=== PATIENT | male | born 1935 | race Caucasian/White ===

== ENCOUNTER 2019-01-27 06:36 | Inpatient (IN) | payer MEDICARE, OTHER ==
[2019-01-27] VITALS (18 sets, daily range): BP systolic 117–171; BP diastolic 64–95
[~2019-01-27] VITALS: Ht 160 cm; Wt 69.7 kg
[~2019-01-27 06:36] MED LIST: TRAMADOL HCL50 MG ORAL
[2019-01-27] MEDS ORDERED: Metoclopramide 10mg/2ml Inj IVP ONE (07:15)
[2019-01-27] MEDS ORDERED: Isovue-300 100ml vial INJ PRN (07:15)
[2019-01-27 07:28] LABS: BASOPHILS % (AUTO) 0.9 % (0.0-2.0); EOSINOPHILS % (AUTO) 0.5 % (0.0-3.0); HEMATOCRIT 40.2 % (42.0-52.0); HEMOGLOBIN 14.5 G/DL (14.2-18.0); LYMPHOCYTES % (AUTO) 11.4 % (20.0-45.0); MEAN CORPUSCULAR VOLUME 91 FL (80-99); MONOCYTES % (AUTO) 8.7 % (1.0-10.0); NEUTROPHILS % (AUTO) 78.5 % (45.0-75.0); PLATELET COUNT 279 K/UL (150-450); RED CELL DISTRIBUTION WIDTH 11.4 % (11.6-14.8); WHITE BLOOD COUNT 11.9 K/UL (4.8-10.8)
[2019-01-27 07:37] LABS: ANION GAP 8 mmol/L (5-15); BLOOD UREA NITROGEN 16 mg/dL (7-18); CALCIUM 9.3 MG/DL (8.5-10.1); CARBON DIOXIDE 28 MMOL/L (21-32); CHLORIDE 100 MMOL/L (98-107); CREATININE 1.3 MG/DL (0.55-1.30); POTASSIUM 3.6 MMOL/L (3.5-5.1); SODIUM 136 MMOL/L (136-145)
[2019-01-27 07:50] LABS: ALANINE AMINOTRANSFERASE 21 U/L (12-78); ALBUMIN 3.8 G/DL (3.4-5.0); ALBUMIN/GLOBULIN RATIO 1.1 (1.0-2.7); ALKALINE PHOSPHATASE 84 U/L (46-116); ASPARTATE AMINO TRANSFERASE 23 U/L (15-37)
--- NOTE | 2019-01-27 08:05 | Emergency Room Report ---
History of Present Illness General Chief Complaint: Constipation Source: Patient, Family Member Present Illness HPI 83-year-old male presents ED for evaluation. Brought in by family for constipation. States he has not had a bowel movement since which is unusual for him. Patient denies any abdominal pain. Denies any nausea or vomiting. States that patient does have a hernia on the right side which "came out the other day". States that he has had this hernia for years and had discussion with doctors to have it corrected but he declined. No other aggravating relieving factors. Denies any other associated symptoms Allergies: Coded Allergies: No Known Allergies (Unverified , 01/27/19) Patient History Past Medical History: none Past Surgical History: none Pertinent Family History: none Social History: Denies: smoking, alcohol use, drug use Immunizations: UTD Reviewed Nursing Documentation: PMH: Agreed; PSxH: Agreed Nursing Documentation-PMH Past Medical History: No Stated History Hx Cardiac Problems: No - 2 hip replacemnts Review of Systems All Other Systems: negative except mentioned in HPI Physical Exam Vital Signs Date Time Temp Pulse Resp B/P (MAP) Pulse Ox O2 Delivery O2 Flow Rate FiO2 01/27/19 06:41 98.1 87 16 129/85 (100) 96 Room Air Sp02 EP Interpretation: reviewed, normal General Appearance: no apparent distress, alert, GCS 15, non-toxic Head: normocephalic Eyes: bilateral eye normal inspection, bilateral eye PERRL ENT: normal ENT inspection Neck: normal inspection Respiratory: chest non-tender, lungs clear, normal breath sounds, speaking full sentences Cardiovascular #1: regular rate, rhythm, no edema Gastrointestinal: distended, hernia - R inguinal nonreducible Rectal: deferred Genitourinary: no CVA tenderness Musculoskeletal: back normal Neurologic: alert, oriented x3, responsive, motor strength/tone normal, sensory intact, speech normal Psychiatric: normal inspection Skin: normal inspection Lymphatic: normal inspection Medical Decision Making Diagnostic Impression: Primary Impression: Inguinal hernia of right side with obstruction ER Course Hospital Course 83 yo M presents with R inguinal hernia, no BM X 4 days Differential diagnoses include: abscess, hernia, SBO Clinical course Patient placed on stretcher. telemetry monitor. After initial history and physical I ordered labs, IV fluids, UA, and CT scan Labs - no leukocytosis, Hb/Hct stable, electrolytes ok, CT abdomen and pelvis -right inguinal hernia containing sigmoid with incarceration discussed findings with patient and family. Case discussed with Dr. Lawler and he agreed to accept the patient to his service for further care and support Dr Herrera will see patient I feel this is a highly complex case requiring extensive working including EKG/ Rhythm strip, Xray/CT/US, Blood/urine lab work, repeat exams while in ED, and administration of strong opiates/narcotics for pain control, admission to hospital or close patient follow up. Diagnosis -hernia of right side with obstruction Patient admitted to floor in serious condition Labs Test 01/27/19 07:17 01/27/19 07:56 01/27/19 09:05 White Blood Count 11.9 K/UL (4.8-10.8) Red Blood Count 4.40 M/UL (4.70-6.10) Hemoglobin 14.5 G/DL (14.2-18.0) Hematocrit 40.2 % (42.0-52.0) Mean Corpuscular Volume 91 FL (80-99) Mean Corpuscular Hemoglobin 33.1 PG (27.0-31.0) Mean Corpuscular Hemoglobin Concent 36.2 G/DL (32.0-36.0) Red Cell Distribution Width 11.4 % (11.6-14.8) Platelet Count 279 K/UL (150-450) Mean Platelet Volume 7.0 FL (6.5-10.1) Neutrophils (%) (Auto) 78.5 % (45.0-75.0) Lymphocytes (%) (Auto) 11.4 % (20.0-45.0) Monocytes (%) (Auto) 8.7 % (1.0-10.0) Eosinophils (%) (Auto) 0.5 % (0.0-3.0) Basophils (%) (Auto) 0.9 % (0.0-2.0) Sodium Level 136 MMOL/L (136-145) Potassium Level 3.6 MMOL/L (3.5-5.1) Chloride Level 100 MMOL/L (98-107) Carbon Dioxide Level 28 MMOL/L (21-32) Anion Gap 8 mmol/L (5-15) Blood Urea Nitrogen 16 mg/dL (7-18) Creatinine 1.3 MG/DL (0.55-1.30) Estimat Glomerular Filtration Rate mL/min (>60) Glucose Level 120 MG/DL (74-106) Calcium Level 9.3 MG/DL (8.5-10.1) Total Bilirubin 1.0 MG/DL (0.2-1.0) Aspartate Amino Transf (AST/SGOT) 23 U/L (15-37) Alanine Aminotransferase (ALT/SGPT) 21 U/L (12-78) Alkaline Phosphatase 84 U/L (46-116) Total Protein 7.4 G/DL (6.4-8.2) Albumin 3.8 G/DL (3.4-5.0) Globulin 3.6 g/dL Albumin/Globulin Ratio 1.1 (1.0-2.7) Lipase 100 U/L (73-393) Urine Color Yellow Urine Appearance Clear Urine pH 6 (4.5-8.0) Urine Specific [place] 1.025 (1.005-1.035) Urine Protein 2+ (NEGATIVE) Urine Glucose (UA) Negative (NEGATIVE) Urine Ketones Negative (NEGATIVE) Urine Blood 2+ (NEGATIVE) Urine Nitrite Negative (NEGATIVE) Urine Bilirubin Negative (NEGATIVE) Urine Urobilinogen Normal MG/DL (0.0-1.0) Urine Leukocyte Esterase Negative (NEGATIVE) Urine RBC 5-10 /HPF (0 - 0) Urine WBC 0-2 /HPF (0 - 0) Urine Squamous Epithelial Cells Occasional /LPF Urine Bacteria Occasional /HPF (NONE) Urine Fine Granular Casts 0-2 /LPF (NONE) Prothrombin Time 10.6 SEC (9.30-11.50) Prothromb Time International Ratio 1.0 (0.9-1.1) Activated Partial Thromboplast Time 26 SEC (23-33) CT/MRI/US Diagnostic Results CT/MRI/US Diagnostic Results : Imaging Test Ordered: CT A/P Impression Right inguinal hernia containing a short segment of sigmoid colon with dilatation of the proximal colon suspicious for obstruction and incarceration of the hernia. No evidence of pneumoperitoneum or other complications. Last Vital Signs Date Time Temp Pulse Resp B/P (MAP) Pulse Ox O2 Delivery O2 Flow Rate FiO2 01/27/19 07:07 98.1 87 16 129/85 96 Room Air Status: improved Disposition: ADMITTED INPATIENT Condition: Serious Referrals: NON PHYSICIAN (PCP) Dejuan Martínez MD Jan 27, 2019 08:05
[2019-01-27 08:18] LABS: APPEARANCE,URINE CLEAR; BILIRUBIN, URINE NEGATIVE (NEGATIVE); GLUCOSE, URINE (UA) NEGATIVE (NEGATIVE); KETONES,URINE NEGATIVE (NEGATIVE); LEUKOCYTE ESTERASE ,URINE NEGATIVE (NEGATIVE); NITRITE,URINE NEGATIVE (NEGATIVE); PH,URINE 6 (4.5-8.0); PROTEIN,URINE 2+ (NEGATIVE); UROBILINOGEN,URINE NORMAL MG/DL (0.0-1.0)
[2019-01-27 08:23] LABS: COLOR,URINE YELLOW
--- NOTE | 2019-01-27 09:24 | Diagnostic Imaging Report ---
Indication: Abdominal pain Technique: Continuous helical transaxial imaging of the abdomen and pelvis was obtained from the lung bases to the pubic symphysis during intravenous contrast administration. Coronal 2-D reformats were also obtained. Study obtained in a Siemens sensation [address] Automatic Exposure Control was utilized. Total Dose length Product (DLP): 730.[address] Dose Index Volume (CTDIvol): 12.67 mGy Comparison: None Findings: There is evidence of an incarcerated right inguinal hernia containing segment of the sigmoid colon. The proximal colon or afferent loop entering the hernia is moderately dilated which is suspicious for obstruction. There is no small bowel dilatation. The hernia itself is notable for inflammatory changes including some fluid in the hernia sac and soft tissue stranding. The hernia is not reducible according to Dr. Martínez on the markers department. Imaging findings are keeping with incarceration. There is no free air. There is no pneumatosis identified. There is a moderate amount of liquid stool within the colon. There is a fairly large left inguinal hernia containing fat. Note is made of one large cyst that extends superiorly measuring 11 to 12 cm. Other small hypodensities too small to characterize bilaterally are probably also cysts. There is no hydronephrosis. There is moderate calcification of aorta. The pancreas and liver, spleen, gallbladder appear unremarkable. There is a hiatal hernia present. Basilar reticular densities and some groundglass opacification noted. There is narrowing of intervertebral discs and accompanying endplate osteophyte formation. Hypertrophied facet joints also demonstrated.. There is a severe compression fracture deformity of the T11 vertebra. The fracture is age indeterminate on this study. Bones are osteopenic. IMPRESSION: Right inguinal hernia containing a short segment of sigmoid colon with dilatation of the proximal colon suspicious for obstruction and incarceration of the hernia. No evidence of pneumoperitoneum or other complications. Multiple incidental findings including large left renal cyst, hiatal hernia, basilar fibrosis, left inguinal hernia containing only fat, age indeterminate severe T11 compression fracture. Critical value communication. Findings were discussed via telephone with Dr. Martínez in the emergency department 9:00 AM 01/27/2019. The CT scanner at [facility] is accredited by the [employer] and the scans are performed using dose optimization techniques as appropriate to a performed exam including Automatic Exposure control.
[2019-01-27] MEDS ORDERED: NeoSporin Gu Irrig 1ml Amp IRRIG ONE (10:43)
[2019-01-27] MEDS ORDERED: Lidocaine 1% 10mg/ml/Epi 0.005mg/ml 30ml vial INJ ONE (10:43)
[2019-01-27] MEDS ORDERED: Bacitracin 50000 Units Vial ONE (10:43)
[2019-01-27] MEDS ORDERED: NAMZARIC 28 MG1 EACH PO (10:57)
[2019-01-27] MEDS ORDERED: CEPHALEXIN250 MG ORAL (10:57)
[2019-01-27] MEDS ORDERED: TENORMIN25 MG ORAL (10:57)
[2019-01-27] MEDS ORDERED: fentaNYL 100 mcg/2 mL IV ONE (11:11)
[2019-01-27] MEDS ORDERED: Propofol 200mg/20ml IV ONE (11:11)
[2019-01-27] MEDS ORDERED: Lidocaine 1% MPF 10mg/ml 5ml ONE (11:11)
--- NOTE | 2019-01-27 11:12 | Pre-Procedure Note/Attestation ---
Pre-Procedure Note/Attestation Complete Prior to Procedure Planned Procedure: right Procedure Narrative: right inguinal hernia repair, possible mesh, possible bowel resection, possible exploratory laparotomy Indications for Procedure Pre-Operative Diagnosis: incarcerated right inguinal hernia Attestation I attest that I discussed the nature of the procedure; its benefits; risks and complications; and alternatives (and the risks and benefits of such alternatives ), prior to the procedure, with the patient (or the patient's legal public service representative). I attest that, if there was a reasonable possibility of needing a blood transfusion, the patient (or the patient's legal public service representative) was given the [facility] standardized written summary, pursuant to the [place] Blood Safety Act ([place] Health and Safety Code # 1645, as amended). I attest that I re-evaluated the patient just prior to the surgery and that there has been no change in the patient's H&P, except as documented below: Ladarius Herrera Jan 27, 2019 11:12
[2019-01-27] MEDS ORDERED: Metoclopramide 10mg/2ml Inj IVP PRN (11:15)
[2019-01-27] MEDS ORDERED: Nitroglycerin Subl 0.4mg tab SL PRN (11:15)
[2019-01-27] MEDS ORDERED: Promethazine HCl 25 MG in NS 55 ML IV PRN (11:15)
[2019-01-27] MEDS ORDERED: Morphine Sulfate 2mg/ml Inj(IV/IM USE ONLY) IVP PRN (11:15)
[2019-01-27] MEDS ORDERED: Promethazine HCl 12.5 MG in NS 55 ML IV PRN (11:15)
[2019-01-27] MEDS ORDERED: cefOXitin Sod 2 GM in D5W 110 ML IV PRN (11:15)
[2019-01-27] MEDS: D5 1/2NS 1,000 ML IV SCH ×2 (11:15→20:51)
[2019-01-27] MEDS ORDERED: LORazepam Inj 2mg/ml 1ml IV PRN (11:15)
--- NOTE | 2019-01-27 11:15 | History and Physical ---
History of Present Illness General Date patient seen: Jan 27, 2019 Reason for Hospitalization: Constipation Present Illness HPI 83-year-old male with hx of dementia, HTN presented to ED for evaluation of constipation. Reportedly he has not had a bowel movement since which is unusual for him. Patient denies any abdominal pain. Denies any nausea or vomiting. He has a hernia on the right side which "came out the other day". States that he has had this hernia for years and had discussion with doctors to have it corrected but he declined. No other aggravating relieving factors. Denies any other associated symptoms. He was diagnosed to have incarcerated hernia and admitted for surgical correction of it. Allergies: Coded Allergies: No Known Allergies (Unverified , 01/27/19) Medication History Scheduled Atenolol (Tenormin), 25 MG ORAL DAILY, (Reported) Cephalexin (Cephalexin), 250 MG ORAL BID, (Reported) Memantine HCl/Donepezil HCl (Namzaric 28 mg-10 mg Capsule), 1 EACH PO DAILY, ( Reported) Scheduled PRN Tramadol Hcl* (Ultram*), 50 MG ORAL Q6H PRN for For Pain Patient History Healthcare decision maker Resuscitation status Advanced Directive on File Past Medical/Surgical History Past Medical/Surgical History: (1) History of hypertension (2) Alzheimer's dementia Review of Systems All Other Systems: negative except mentioned in HPI Physical Exam General Appearance: WD/WN, alert Lines, tubes and drains: peripheral HEENT: normocephalic, anicteric Neck: non-tender, normal inspection Respiratory/Chest: chest wall non-tender, lungs clear Cardiovascular/Chest: normal peripheral pulses, regularly irregular Abdomen: normal bowel sounds, non tender, hernia Genitourinary/Rectal: normal genital exam Extremities: normal range of motion Skin Exam: warm/dry Last 24 Hour Vital Signs Date Time Temp Pulse Resp B/P (MAP) Pulse Ox O2 Delivery O2 Flow Rate FiO2 01/27/19 10:11 98.1 81 18 153/89 98 Room Air 01/27/19 10:11 81 18 153/89 98 Room Air 01/27/19 09:36 77 15 171/88 98 Room Air 01/27/19 07:07 98.1 87 16 129/85 96 Room Air 01/27/19 06:41 98.1 87 16 129/85 (100) 96 Room Air Laboratory Tests Test 01/27/19 07:17 01/27/19 07:56 01/27/19 09:05 White Blood Count 11.9 K/UL (4.8-10.8) H Red Blood Count 4.40 M/UL (4.70-6.10) L Hemoglobin 14.5 G/DL (14.2-18.0) Hematocrit 40.2 % (42.0-52.0) L Mean Corpuscular Volume 91 FL (80-99) Mean Corpuscular Hemoglobin 33.1 PG (27.0-31.0) H Mean Corpuscular Hemoglobin Concent 36.2 G/DL (32.0-36.0) H Red Cell Distribution Width 11.4 % (11.6-14.8) L Platelet Count 279 K/UL (150-450) Mean Platelet Volume 7.0 FL (6.5-10.1) Neutrophils (%) (Auto) 78.5 % (45.0-75.0) H Lymphocytes (%) (Auto) 11.4 % (20.0-45.0) L Monocytes (%) (Auto) 8.7 % (1.0-10.0) Eosinophils (%) (Auto) 0.5 % (0.0-3.0) Basophils (%) (Auto) 0.9 % (0.0-2.0) Sodium Level 136 MMOL/L (136-145) Potassium Level 3.6 MMOL/L (3.5-5.1) Chloride Level 100 MMOL/L (98-107) Carbon Dioxide Level 28 MMOL/L (21-32) Anion Gap 8 mmol/L (5-15) Blood Urea Nitrogen 16 mg/dL (7-18) Creatinine 1.3 MG/DL (0.55-1.30) Estimat Glomerular Filtration Rate mL/min (>60) Glucose Level 120 MG/DL (74-106) H Calcium Level 9.3 MG/DL (8.5-10.1) Total Bilirubin 1.0 MG/DL (0.2-1.0) Aspartate Amino Transf (AST/SGOT) 23 U/L (15-37) Alanine Aminotransferase (ALT/SGPT) 21 U/L (12-78) Alkaline Phosphatase 84 U/L (46-116) Total Protein 7.4 G/DL (6.4-8.2) Albumin 3.8 G/DL (3.4-5.0) Globulin 3.6 g/dL Albumin/Globulin Ratio 1.1 (1.0-2.7) Lipase 100 U/L (73-393) Urine Color Yellow Urine Appearance Clear Urine pH 6 (4.5-8.0) Urine Specific [place] 1.025 (1.005-1.035) Urine Protein 2+ (NEGATIVE) H Urine Glucose (UA) Negative (NEGATIVE) Urine Ketones Negative (NEGATIVE) Urine Blood 2+ (NEGATIVE) H Urine Nitrite Negative (NEGATIVE) Urine Bilirubin Negative (NEGATIVE) Urine Urobilinogen Normal MG/DL (0.0-1.0) Urine Leukocyte Esterase Negative (NEGATIVE) Urine RBC 5-10 /HPF (0 - 0) H Urine WBC 0-2 /HPF (0 - 0) Urine Squamous Epithelial Cells Occasional /LPF Urine Bacteria Occasional /HPF (NONE) Urine Fine Granular Casts 0-2 /LPF (NONE) H Prothrombin Time 10.6 SEC (9.30-11.50) Prothromb Time International Ratio 1.0 (0.9-1.1) Activated Partial Thromboplast Time 26 SEC (23-33) Height (Feet): 5 Height (Inches): 3.00 Weight (Pounds): 165 Medications Current Medications Medications (Trade) Dose Ordered Sig/Demetrio Route PRN Reason Start Time Stop Time Status Last Admin Dose Admin Iopamidol (Isovue-300 100ml) 100 ml NOW PRN INJ Radiology Procedure 01/27/19 07:15 Assessment/Plan Problem List: (1) Incarcerated femoral hernia ICD Codes: K41.30 - Unilateral femoral hernia, with obstruction, without gangrene, not specified as recurrent SNOMED: 675487768 (2) History of hypertension ICD Codes: Z86.79 - Personal history of other diseases of the circulatory system SNOMED: 057124451 (3) Alzheimer's dementia ICD Codes: G30.9 - Alzheimer's disease, unspecified; F02.80 - Dementia in other diseases classified elsewhere without behavioral disturbance SNOMED: 15732264 Assessment/Plan: NPO iv fluids monitor BP surgical evaluation dvt prophylaxis symptomatic treatment. Bashir Lawler MD Jan 27, 2019 11:15
--- NOTE | 2019-01-27 11:16 | Consultation ---
History of Present Illness General Date patient seen: Jan 27, 2019 Reason for Hospitalization: Constipation Present Illness HPI 83M presented to ED with worsening abd pain, nausea, constipation. In ED noted to have incarcerated right inguinal hernia that was not reducible. CT confirmed findings. Surgery called to evaluate. patient seen, chart reviewed, patient examined. family at bedside. has been having discomfort from known hernia for a few days now. usually regular BM but now constipated. no emesis. Allergies: Coded Allergies: No Known Allergies (Unverified , 01/27/19) Medication History Scheduled Atenolol (Tenormin), 25 MG ORAL DAILY, (Reported) Cephalexin (Cephalexin), 250 MG ORAL BID, (Reported) Memantine HCl/Donepezil HCl (Namzaric 28 mg-10 mg Capsule), 1 EACH PO DAILY, ( Reported) Scheduled PRN Tramadol Hcl* (Ultram*), 50 MG ORAL Q6H PRN for For Pain Patient History Healthcare decision maker Resuscitation status Advanced Directive on File Past Medical/Surgical History Past Medical/Surgical History: (1) Incarcerated right inguinal hernia (2) History of hypertension (3) Alzheimer's dementia (4) Incarcerated femoral hernia Review of Systems Review of Symptoms General ROS: no weight loss or fever Psychological ROS: no depression or mood changes, no memory loss Ophthalmic ROS: no visual changes or eye irritation ENT ROS: no nasal congestion, hearing loss, dizziness Allergy and Immunology ROS: no allergic symptoms or urticaria Hematological and Lymphatic ROS: no swollen glands, unusual bleeding or bruising Endocrine ROS: no polyuria, polydipsia, weight changes, temperature intolerance Respiratory ROS: no cough, shortness of breath, or wheezing Cardiovascular ROS: no chest pain or dyspnea on exertion Gastrointestinal ROS: abdominal pain,no bright red blood in stool. Musculoskeletal ROS: no myalgias or arthralgias Neurological ROS: no TIA or stroke symptoms Dermatological ROS: no new or changing skin lesions, rashes or pruritis Physical Exam Physical Exam General appearance: alert, cooperative, no distress, appears stated age Head: Normocephalic, without obvious abnormality, atraumatic Eyes: conjunctivae/corneas clear. PERRL, EOM's intact. Fundi benign Throat: Lips, mucosa, and tongue normal. Teeth and gums normal Neck: supple, symmetrical, trachea midline, no adenopathy, thyroid: not enlarged, symmetric, no tenderness/mass/nodules, no carotid bruit and no JVD Lungs: clear to auscultation bilaterally Heart: regular rate and rhythm, S1, S2 normal, no murmur, click, rub or gallop Abdomen: soft, non-tender. Bowel sounds normal. No masses, no organomegaly, distended; incarcerated tender hard right inguinal hernia Extremities: extremities normal, atraumatic, no cyanosis or edema Pulses: 2+ and symmetric Skin: Skin color, texture, turgor normal. No rashes or lesions Neurologic: Grossly normal Last 24 Hour Vital Signs Date Time Temp Pulse Resp B/P (MAP) Pulse Ox O2 Delivery O2 Flow Rate FiO2 01/27/19 10:11 98.1 81 18 153/89 98 Room Air 01/27/19 10:11 81 18 153/89 98 Room Air 01/27/19 09:36 77 15 171/88 98 Room Air 01/27/19 07:07 98.1 87 16 129/85 96 Room Air 01/27/19 06:41 98.1 87 16 129/85 (100) 96 Room Air Laboratory Tests Test 01/27/19 07:17 01/27/19 07:56 01/27/19 09:05 White Blood Count 11.9 K/UL (4.8-10.8) H Red Blood Count 4.40 M/UL (4.70-6.10) L Hemoglobin 14.5 G/DL (14.2-18.0) Hematocrit 40.2 % (42.0-52.0) L Mean Corpuscular Volume 91 FL (80-99) Mean Corpuscular Hemoglobin 33.1 PG (27.0-31.0) H Mean Corpuscular Hemoglobin Concent 36.2 G/DL (32.0-36.0) H Red Cell Distribution Width 11.4 % (11.6-14.8) L Platelet Count 279 K/UL (150-450) Mean Platelet Volume 7.0 FL (6.5-10.1) Neutrophils (%) (Auto) 78.5 % (45.0-75.0) H Lymphocytes (%) (Auto) 11.4 % (20.0-45.0) L Monocytes (%) (Auto) 8.7 % (1.0-10.0) Eosinophils (%) (Auto) 0.5 % (0.0-3.0) Basophils (%) (Auto) 0.9 % (0.0-2.0) Sodium Level 136 MMOL/L (136-145) Potassium Level 3.6 MMOL/L (3.5-5.1) Chloride Level 100 MMOL/L (98-107) Carbon Dioxide Level 28 MMOL/L (21-32) Anion Gap 8 mmol/L (5-15) Blood Urea Nitrogen 16 mg/dL (7-18) Creatinine 1.3 MG/DL (0.55-1.30) Estimat Glomerular Filtration Rate mL/min (>60) Glucose Level 120 MG/DL (74-106) H Calcium Level 9.3 MG/DL (8.5-10.1) Total Bilirubin 1.0 MG/DL (0.2-1.0) Aspartate Amino Transf (AST/SGOT) 23 U/L (15-37) Alanine Aminotransferase (ALT/SGPT) 21 U/L (12-78) Alkaline Phosphatase 84 U/L (46-116) Total Protein 7.4 G/DL (6.4-8.2) Albumin 3.8 G/DL (3.4-5.0) Globulin 3.6 g/dL Albumin/Globulin Ratio 1.1 (1.0-2.7) Lipase 100 U/L (73-393) Urine Color Yellow Urine Appearance Clear Urine pH 6 (4.5-8.0) Urine Specific [place] 1.025 (1.005-1.035) Urine Protein 2+ (NEGATIVE) H Urine Glucose (UA) Negative (NEGATIVE) Urine Ketones Negative (NEGATIVE) Urine Blood 2+ (NEGATIVE) H Urine Nitrite Negative (NEGATIVE) Urine Bilirubin Negative (NEGATIVE) Urine Urobilinogen Normal MG/DL (0.0-1.0) Urine Leukocyte Esterase Negative (NEGATIVE) Urine RBC 5-10 /HPF (0 - 0) H Urine WBC 0-2 /HPF (0 - 0) Urine Squamous Epithelial Cells Occasional /LPF Urine Bacteria Occasional /HPF (NONE) Urine Fine Granular Casts 0-2 /LPF (NONE) H Prothrombin Time 10.6 SEC (9.30-11.50) Prothromb Time International Ratio 1.0 (0.9-1.1) Activated Partial Thromboplast Time 26 SEC (23-33) Height (Feet): 5 Height (Inches): 3.00 Weight (Pounds): 165 Medications Current Medications Medications (Trade) Dose Ordered Sig/Demetrio Route PRN Reason Start Time Stop Time Status Last Admin Dose Admin Iopamidol (Isovue-300 100ml) 100 ml NOW PRN INJ Radiology Procedure 01/27/19 07:15 Assessment/Plan Problem List: (1) Incarcerated right inguinal hernia Assessment & Plan: 83 M with incarcerated right inguinal hernia. CT Findings: There is evidence of an incarcerated right inguinal hernia containing segment of the sigmoid colon. The proximal colon or afferent loop entering the hernia is moderately dilated which is suspicious for obstruction. There is no small bowel dilatation. The hernia itself is notable for inflammatory changes including some fluid in the hernia sac and soft tissue stranding. The hernia is not reducible according to Dr. Martínez on the markers department. Imaging findings are keeping with incarceration. There is no free air. There is no pneumatosis identified. There is a moderate amount of liquid stool within the colon. There is a fairly large left inguinal hernia containing fat. NPO IV fluids IV Abx to OR for reduction, right inguinal hernia repair, possible mesh, possible bowel resection, possible exploration consent thank you ICD Codes: K40.30 - Unilateral inguinal hernia, with obstruction, without gangrene, not specified as recurrent SNOMED: [id number] Ladarius Herrera Jan 27, 2019 11:16
[2019-01-27] MEDS ORDERED: Zemuron 50mg/5ml Inj IV ONE (11:24)
[2019-01-27] MEDS ORDERED: Succinylcholine 20mg/ml 10ml vial ONE (11:24)
--- NOTE | 2019-01-27 11:39 | Anethesia Preoperative Eval ---
Anesthesia Pre-op PMH/ROS General Date of Evaluation: Jan 27, 2019 Time of Evaluation: 11:35 Anesthesiologist: Rosa ASA Score: ASA 2 Mallampati Score Class I : Soft palate, uvula, fauces, pillars visible Class II: Soft palate, uvula, fauces visible Class III: Soft palate, base of uvula visible Class IV: Only hard plate visible Mallampati Classification: Class II Surgeon: Wilver Diagnosis: Incarcerated injuinal hernia Surgical Procedure: Hernia repair Anesthesia History: none Social History: smoking - h/o Family History: no anesthesia problems Allergies: Coded Allergies: No Known Allergies (Unverified , 01/27/19) Medications: see eMAR Patient NPO?: Yes Past Medical History Cardiovascular: Reports: HTN; Denies: CAD, NE, valve dz, arrhythmia, other Pulmonary: Denies: asthma, COPD, PHAN, other Gastrointestinal/Genitourinary: Reports: GERD, other - constipation; Denies: CRI, ESRD Neurologic/Psychiatric: Reports: dementia - mild; Denies: CVA, depression/anxiety, TIA, other Endocrine: Reports: hypothyroidism; Denies: DM, steroids, other HEENT: Reports: cataract (L), cataract (R); Denies: glaucoma, AUGUSTINE (L), AUGUSTINE (R), other Hematology/Immune: Denies: anemia, DVT, bleeding disorder, other Musculoskeletal/Integumentary: Reports: OA; Denies: RA, DJD, DDD, edema, other Other: other - overweight PMH Narrative: as above PSxH Narrative: see H&P Anesthesia Pre-op Phys. Exam Physician Exam Last Vital Signs Date Time Temp Pulse Resp B/P (MAP) Pulse Ox O2 Delivery O2 Flow Rate FiO2 01/27/19 10:11 98.1 81 18 153/89 98 Room Air Constitutional: NAD Neurologic: CN 2-12 intact Cardiovascular: RRR, no M/R/G Respiratory: CTA Gastrointestinal: S/NT/ND Airway Exam Mallampati Score: Class II MO: limited Neck: stiff ROM: limited Teeth: missing Dentures: no upper, no lower Anesthesia Pre-op A/P Labs Hematology Test 01/27/19 07:17 White Blood Count 11.9 K/UL (4.8-10.8) H Red Blood Count 4.40 M/UL (4.70-6.10) L Hemoglobin 14.5 G/DL (14.2-18.0) Hematocrit 40.2 % (42.0-52.0) L Mean Corpuscular Volume 91 FL (80-99) Mean Corpuscular Hemoglobin 33.1 PG (27.0-31.0) H Mean Corpuscular Hemoglobin Concent 36.2 G/DL (32.0-36.0) H Red Cell Distribution Width 11.4 % (11.6-14.8) L Platelet Count 279 K/UL (150-450) Mean Platelet Volume 7.0 FL (6.5-10.1) Neutrophils (%) (Auto) 78.5 % (45.0-75.0) H Lymphocytes (%) (Auto) 11.4 % (20.0-45.0) L Monocytes (%) (Auto) 8.7 % (1.0-10.0) Eosinophils (%) (Auto) 0.5 % (0.0-3.0) Basophils (%) (Auto) 0.9 % (0.0-2.0) Coagulation Test 01/27/19 09:05 Prothrombin Time 10.6 SEC (9.30-11.50) Prothromb Time International Ratio 1.0 (0.9-1.1) Activated Partial Thromboplast Time 26 SEC (23-33) Chemistry Test 01/27/19 07:17 Sodium Level 136 MMOL/L (136-145) Potassium Level 3.6 MMOL/L (3.5-5.1) Chloride Level 100 MMOL/L (98-107) Carbon Dioxide Level 28 MMOL/L (21-32) Anion Gap 8 mmol/L (5-15) Blood Urea Nitrogen 16 mg/dL (7-18) Creatinine 1.3 MG/DL (0.55-1.30) Estimat Glomerular Filtration Rate mL/min (>60) Glucose Level 120 MG/DL (74-106) H Calcium Level 9.3 MG/DL (8.5-10.1) Total Bilirubin 1.0 MG/DL (0.2-1.0) Aspartate Amino Transf (AST/SGOT) 23 U/L (15-37) Alanine Aminotransferase (ALT/SGPT) 21 U/L (12-78) Alkaline Phosphatase 84 U/L (46-116) Total Protein 7.4 G/DL (6.4-8.2) Albumin 3.8 G/DL (3.4-5.0) Globulin 3.6 g/dL Albumin/Globulin Ratio 1.1 (1.0-2.7) Lipase 100 U/L (73-393) Risk Assessment & Plan Assessment: ASA 2 Plan: GA with ETT Status Change Before Surgery: No Pre-Antibiotics Drug: Ancef 1gr. Given Within 1 Hr of Incision: Yes Time Given: 12:10 Talat Lee MD Jan 27, 2019 11:39
[2019-01-27] MEDS ORDERED: LR 1000ml ONE (11:42)
[2019-01-27] MEDS ORDERED: Neostigmine 1mg/ml 10ml Inj ONE (11:42)
[2019-01-27] MEDS ORDERED: Glycopyrrolate 0.2mg/ml 1ml Vial ONE (12:37)
[2019-01-27] MEDS ORDERED: Ketorolac 30mg Inj ONE (12:37)
[2019-01-27] MEDS ORDERED: LR 1000ml 1,000 ML IVLG SCH (12:41)
[2019-01-27] MEDS ORDERED: DiphenhydrAMINE 50mg/ml Inj IVP PRN (12:45)
[2019-01-27] MEDS ORDERED: Hydromorphone 0.5mg/0.5ml inj IVP PRN ×2 (12:45→13:45)
[2019-01-27] MEDS ORDERED: HYDROcodone/Acetamin 10/325 tab ORAL PRN (13:45)
[2019-01-27] MEDS ORDERED: HYDROcodone/Acetamin 5/325 tab ORAL PRN (13:45)
[2019-01-27] MEDS ORDERED: HYDROmorphone 1mg/ml Carpuject IVP PRN (13:45)
--- NOTE | 2019-01-27 13:45 | Brief Operative Note ---
Immediate Post Operative Note Operative Note Pre-op Diagnosis: incarcerated right inguinal hernia Procedure: right inguinal hernia repair with mesh reduction of right incarcerated inguinal hernia Post-op Diagnosis: same as pre-op Surgeon: kiara Anesthesiologist: lubna Anesthesia: general, local Specimen: yes Complications: none Condition: stable Fluids: see records Estimated Blood Loss: minimal Drains: other Implant(s) used?: Yes Ladarius Herrera Jan 27, 2019 13:45
--- NOTE | 2019-01-27 14:01 | Immediate Post-Op Evaluation ---
Immediate Post-Op Evalulation Immediate Post-Op Evalulation Procedure: Repair of R incarcerated injuinal hernia Date of Evaluation: Jan 27, 2019 Time of Evaluation: 14:00 IV Fluids: 1000 Blood Products: none Estimated Blood Loss: min Urinary Output: 150 Blood Pressure Systolic: 136 Blood Pressure Diastolic: 77 Pulse Rate: 86 Respiratory Rate: 20 O2 Sat by Pulse Oximetry: 98 Temperature (Fahrenheit): 98.1 Pain Score (1-10): 1 Nausea: No Vomiting: No Complications none Patient Status: reacts, patent, extubated, none Hydration Status: adequate Talat Lee MD Jan 27, 2019 14:01
[2019-01-27] MEDS: ceFAZolin sod 2 GM in D5W 110 ML IV SCH (20:51)
[2019-01-27] MEDS: Heparin 5000 units/ml inj SUBQ SCH (20:58)
[2019-01-27] MEDS ORDERED: Miralax 17gm pkt ORAL PRN (21:00)
--- NOTE | 2019-01-27 22:45 | Operative Note - Dictated ---
DATE OF OPERATION: 01/27/2019 PREOPERATIVE DIAGNOSIS: Incarcerated right inguinal hernia. POSTOPERATIVE DIAGNOSIS: Incarcerated right inguinal hernia. OPERATION PERFORMED: 1. Reduction of incarcerated right inguinal hernia. 2. Right inguinal hernia repair with mesh. ATTENDING SURGEON: Ladarius Herrera M.D. STEREO EQUIPMENT REPAIRER: None. ANESTHESIOLOGIST: Talat Lee M.D. ANESTHESIA: General FORKLIFT MATERIAL HANDLER plus local. ESTIMATED BLOOD LOSS: Minimal. IV FLUIDS: Please see anesthesia records. COMPLICATIONS: None. DRAINS: None. SPECIMENS: 1. Hernia sac contents. 2. Hernia sac. WOUND CLASSIFICATION: Class I. IMPLANTS: Bard mesh prefix plug and monofilament knitted polypropylene mesh, lot number [id number], expiration 06/07/2019, reference #[id number], size large. INDICATIONS FOR PROCEDURE: This is an 83-year-old male with known hernia, who presented to the emergency department at [facility] complaining of worsening abdominal pain with nausea and constipation. The patient was identified to have a leukocytosis and on examination, an incarcerated right inguinal hernia that was not reducible. CT scan was performed and there was evidence of incarcerated right inguinal hernia containing a segment of sigmoid colon with proximal colon or afferent loop entering into the hernia, which is moderately dilated and suspicious for obstruction. Given these findings, surgery was indicated and recommended. Risks, benefits, and alternatives were discussed with the patient and family in detail, who expressed understanding and consented to procedure. OPERATIVE NOTE: The patient was taken to the operating room and placed on the operating table in supine position with bilateral arms out. All bony prominences were well padded. SCDs were placed. Preoperative time-out was taken to identify the patient, procedure, operative site, and surgical staff. General anesthesia was induced. The patient was intubated. IV antibiotics were given one hour prior to cut time. The right groin was clipped, prepped, and draped in the standard surgical fashion as well as the abdomen. Anatomical landmarks were identified and a skin incision was made. Incision was carried down through subcutaneous tissue, Tana's fascia, and a large incarcerated inguinal hernia was identified. The external oblique aponeurosis was significantly thinned out and the majority of it was already splayed open. Further dissection identified the hernia sac with incarcerated contents. Sac was entered and incarcerated contents were identified to be the colon. There was an area of necrotic pericolonic fat which was excised, but the colon itself was without necrosis and viable. The contents could not be easily reduced into the abdomen in anatomic position and a releasing incision was made at the external ring. Once this was made, the hernia defect was slightly enlarged and the contents were easily reducible into the abdomen. The contents were re-evaluated and noted to be viable. The contents were returned to the anatomic position without complication. At this time, the hernia sac was ligated high with a 3-0 Vicryl suture followed by excision of portions of the sac using electrocautery. The inguinal floor was identified and noted to be very weak. At this time, decision was made to perform a right inguinal hernia repair with mesh as well as a plug. A large Bard plug was fashioned and placed into the hernia defect and reapproximated to the circumferential surroundings of the defect ensuring not to injure the nerve. At this time, the cord structures were identified and carefully dissected out and mobilized from the operative field to the end of the procedure ensuring safety of the cord structures. A Prefix Bard mesh was then placed and sutured to the shelving edge of the inguinal ligament followed by the conjoined tendon. Once mesh was fashioned in appropriate position, the cord was placed appropriately over the mesh and fashioned in place. Satisfactory hernia repair without tension was identified and we began the conclusion of the procedure. The wound was irrigated with copious amounts of saline, noted to be clean and hemostatic. At this time, the small portions of the remnant internal oblique aponeurosis, which were identified were reapproximated using 3-0 Vicryl suture. The Tana's fascia was then reapproximated using 3-0 Vicryl suture followed by closure of the skin incision using 4-0 Monocryl subcuticular running suture. The wound was cleansed and skin glue plus Steri-Strips were applied. Local anesthetic was performed throughout the procedure for the patient's comfort. The patient tolerated the procedure well, was extubated, and taken to postanesthesia care unit in stable condition. Both testicles were identified to be in anatomic position at the end of the procedure. Ladarius Herrera M.D. DR: WILLIAM JOB#: [id number] CC: AMADO
[2019-01-28] VITALS: BP 108/48
[2019-01-28] MEDS: ceFAZolin sod 2 GM in D5W 110 ML IV SCH (03:34)
[2019-01-28 05:07] VITALS: BP 107/56
[2019-01-28 07:09] LABS: BASOPHILS % (AUTO) 1.1 % (0.0-2.0); EOSINOPHILS % (AUTO) 0.3 % (0.0-3.0); HEMATOCRIT 35.6 % (42.0-52.0); HEMOGLOBIN 12.7 G/DL (14.2-18.0); LYMPHOCYTES % (AUTO) 9.1 % (20.0-45.0); MEAN CORPUSCULAR VOLUME 93 FL (80-99); MONOCYTES % (AUTO) 10.7 % (1.0-10.0); NEUTROPHILS % (AUTO) 78.9 % (45.0-75.0); PLATELET COUNT 220 K/UL (150-450); RED BLOOD COUNT 3.81 M/UL (4.70-6.10); RED CELL DISTRIBUTION WIDTH 11.7 % (11.6-14.8); WHITE BLOOD COUNT 9.5 K/UL (4.8-10.8)
[2019-01-28 07:19] LABS: ALANINE AMINOTRANSFERASE 15 U/L (12-78); ALBUMIN 2.8 G/DL (3.4-5.0); ALBUMIN/GLOBULIN RATIO 0.9 (1.0-2.7); ALKALINE PHOSPHATASE 62 U/L (46-116); AMYLASE 68 U/L (25-115); ANION GAP 7 mmol/L (5-15); ASPARTATE AMINO TRANSFERASE 21 U/L (15-37); BILIRUBIN,TOTAL 0.6 MG/DL (0.2-1.0); BLOOD UREA NITROGEN 17 mg/dL (7-18); CALCIUM 8.3 MG/DL (8.5-10.1); CARBON DIOXIDE 28 MMOL/L (21-32); CHLORIDE 100 MMOL/L (98-107); CREATININE 1.3 MG/DL (0.55-1.30); POTASSIUM 3.3 MMOL/L (3.5-5.1); SODIUM 135 MMOL/L (136-145)
[2019-01-28 07:53] VITALS: BP 110/80
[2019-01-28] MEDS: Heparin 5000 units/ml inj SUBQ SCH (08:27)
--- NOTE | 2019-01-28 08:40 | 48 Hour Post Anesthesia Eval ---
Post Anesthesia Evaluation Procedure: Repair of R incarcerated injuinal hernia Date of Evaluation: Jan 28, 2019 Airway: patent Nausea: No Vomiting: No Pain Intensity: 0 Hydration Status: adequate Cardiopulmonary Status: at baseline Mental Status/LOC: patient returned to baseline Post-Anesthesia Complications: 0 Follow-up care needed: N/A - further care as per primary team Ema Mann MD Jan 28, 2019 08:40
--- NOTE | 2019-01-28 09:54 | GI Initial Consult Note ---
History of Present Illness General Date patient seen: Jan 28, 2019 Time patient seen: 09:53 Reason for Hospitalization: Constipation Referring physician: LALITA COYLE Reason for Consultation: Constipation Present Illness HPI 83-year-old male presents ED for evaluation. Brought in by family for constipation. States he has not had a bowel movement since which is unusual for him. Patient denies any abdominal pain. Denies any nausea or vomiting. States that patient does have a hernia on the right side which "came out the other day". States that he has had this hernia for years and had discussion with doctors to have it corrected but he declined. No other aggravating relieving factors. Denies any other associated symptoms. GI consulted for constipation. Patient is now status post right inguinal hernia repair with mesh. Patient seen, awake alert and oriented, no apparent distress. No postoperative nausea or vomiting. Patient currently ambulating with physical therapy. Minimal amounts of abdominal pain. Reported that the patient had multiple bowel movements. Labs reviewed, no leukocytosis, hemoglobin 12.7. Unknown history of endoscopic colonoscopy. Home Meds Active Scripts Tramadol Hcl* (ULTRAM*) 50 Mg Tablet, 50 MG ORAL Q6H PRN for For Pain, #10 TAB 0 Refills Prov:Austin Gurrola MD 01/28/16 Reported Medications Atenolol (Tenormin) 25 Mg Tablet, 25 MG ORAL DAILY, TAB 01/27/19 Memantine HCl/Donepezil HCl (Namzaric 28 mg-10 mg Capsule) 1 Each Cap.spr.24, 1 EACH PO DAILY, CAP 01/27/19 Cephalexin (Cephalexin) 250 Mg Capsule, 250 MG ORAL BID, CAP 01/27/19 Med list reviewed/reconciled: Yes Allergies: Coded Allergies: No Known Allergies (Unverified , 01/27/19) Patient History History Provided By: Patient, Medical Record PM Narrative Past Medical History: none Past Surgical History: none Pertinent Family History: none Social History: Denies: smoking, alcohol use, drug use Immunizations: UTD Reviewed Nursing Documentation: PMH: Agreed; PSxH: Agreed Nursing Documentation-PM Past Medical History: No Stated History Hx Cardiac Problems: No - 2 hip replacements Social History: Denies: smoking, alcohol use, drug use, other Review of Systems All Other Systems: negative except mentioned in HPI Physical Exam Vital Signs Date Time Temp Pulse Resp B/P (MAP) Pulse Ox O2 Delivery O2 Flow Rate FiO2 01/27/19 06:41 98.1 87 16 129/85 (100) 96 Room Air 01/27/19 13:56 6 Sp02 EP Interpretation: reviewed, normal Labs Laboratory Tests Test 01/28/19 05:58 White Blood Count 9.5 K/UL (4.8-10.8) Red Blood Count 3.81 M/UL (4.70-6.10) L Hemoglobin 12.7 G/DL (14.2-18.0) L Hematocrit 35.6 % (42.0-52.0) L Mean Corpuscular Volume 93 FL (80-99) Mean Corpuscular Hemoglobin 33.4 PG (27.0-31.0) H Mean Corpuscular Hemoglobin Concent 35.8 G/DL (32.0-36.0) Red Cell Distribution Width 11.7 % (11.6-14.8) Platelet Count 220 K/UL (150-450) Mean Platelet Volume 7.1 FL (6.5-10.1) Neutrophils (%) (Auto) 78.9 % (45.0-75.0) H Lymphocytes (%) (Auto) 9.1 % (20.0-45.0) L Monocytes (%) (Auto) 10.7 % (1.0-10.0) H Eosinophils (%) (Auto) 0.3 % (0.0-3.0) Basophils (%) (Auto) 1.1 % (0.0-2.0) Activated Partial Thromboplast Time 29 SEC (23-33) Sodium Level 135 MMOL/L (136-145) L Potassium Level 3.3 MMOL/L (3.5-5.1) L Chloride Level 100 MMOL/L (98-107) Carbon Dioxide Level 28 MMOL/L (21-32) Anion Gap 7 mmol/L (5-15) Blood Urea Nitrogen 17 mg/dL (7-18) Creatinine 1.3 MG/DL (0.55-1.30) Estimat Glomerular Filtration Rate mL/min (>60) Glucose Level 113 MG/DL (74-106) H Calcium Level 8.3 MG/DL (8.5-10.1) L Total Bilirubin 0.6 MG/DL (0.2-1.0) Aspartate Amino Transf (AST/SGOT) 21 U/L (15-37) Alanine Aminotransferase (ALT/SGPT) 15 U/L (12-78) Alkaline Phosphatase 62 U/L (46-116) Total Protein 5.8 G/DL (6.4-8.2) L Albumin 2.8 G/DL (3.4-5.0) L Globulin 3.0 g/dL Albumin/Globulin Ratio 0.9 (1.0-2.7) L Amylase Level 68 U/L (25-115) Lipase 55 U/L (73-393) L General Appearance: well appearing, no apparent distress, alert, thin Head: normocephalic EENT: PERRL/EOMI, normal ENT inspection Neck: supple Respiratory: normal breath sounds, no respiratory distress Cardiovascular: normal rate Gastrointestinal: normal inspection, non tender, soft, normal bowel sounds, non -distended Rectal: deferred Genitourinary: deferred Musculoskeletal: normal inspection, back normal Neurologic: normal inspection, alert, oriented x3, responsive Psychiatric: normal inspection, judgement/insight normal, memory normal Skin: normal inspection, normal color, no rash, warm/dry, palpation normal, well hydrated Lymphatic: normal inspection, no adenopathy Current Medications Current Medications Medications (Trade) Dose Ordered Sig/Demetrio Route PRN Reason Start Time Stop Time Status Last Admin Dose Admin Acetaminophen (Tylenol) 650 mg Q4H PRN ORAL T>100.5 01/27/19 11:15 02/26/19 11:14 Acetaminophen (Tylenol) 650 mg Q6H PRN ORAL Mild Pain (Pain Scale 1-3) 01/27/19 13:45 02/26/19 13:44 Acetaminophen/ Hydrocodone Bitart ([place] 10/325) 1 tab Q4H PRN ORAL Severe Pain (Pain Scale 7-10) 01/27/19 13:45 02/03/19 13:44 Acetaminophen/ Hydrocodone Bitart ([place] 5/325) 1 tab Q4H PRN ORAL Moderate Pain (Pain Scale 4-6) 01/27/19 13:45 02/03/19 13:44 Dextrose (Dextrose 50%) 25 ml Q30M PRN IV Hypoglycemia 01/27/19 11:15 02/26/19 11:14 Dextrose (Dextrose 50%) 50 ml Q30M PRN IV Hypoglycemia 01/27/19 11:15 02/26/19 11:14 Diphenhydramine HCl (Benadryl) 25 mg Q6H PRN ORAL Itching/Pruritis 01/27/19 11:15 02/26/19 11:14 Heparin Sodium (Porcine) (Heparin 5000 units/ml) 5,000 units EVERY 12 HOURS SUBQ 01/27/19 21:00 02/26/19 20:59 01/28/19 08:27 Hydromorphone HCl (Dilaudid) 0.5 mg Q3H PRN IVP Pain Score 1-3 01/27/19 13:45 02/03/19 13:44 Hydromorphone HCl (Dilaudid) 1 mg Q3H PRN IVP pain score 4-6 01/27/19 13:45 02/03/19 13:44 Lorazepam (Ativan 2mg/ml 1ml) 1 mg Q4H PRN IV agitation 01/27/19 11:15 02/03/19 11:14 Metoclopramide HCl (Reglan) 10 mg Q6H PRN IVP servere nauasea 01/27/19 11:15 02/26/19 11:14 Morphine Sulfate (Morphine Sulfate) 2 mg Q4H PRN IVP Severe Pain (Pain Scale 7-10) 01/27/19 11:15 02/03/19 11:14 Nitroglycerin (Ntg) 0.4 mg Q5M X 3 DOSES PRN SL Prn Chest Pain 01/27/19 11:15 02/26/19 11:14 Ondansetron HCl (Zofran) 4 mg Q6H PRN IVP Nausea & Vomiting 01/27/19 11:15 02/26/19 11:14 Polyethylene Glycol (Miralax) 17 gm HSPRN PRN ORAL Constipation 01/27/19 21:00 02/26/19 20:59 Temazepam (Restoril) 15 mg HSPRN PRN ORAL Insomnia 01/27/19 21:00 02/03/19 20:59 01/27/19 22:27 GI: Plan Problems: (1) Constipation (2) Incarcerated right inguinal hernia (3) Alzheimer's dementia Plan Follow-up surgical recommendations Zofran as needed for any postoperative nausea or vomiting, reglan for persistent. bowel regime, colace + miralax Pain management PPI Electrolyte correction Advance diet per surgery recommendations Occult blood stool to rule out any GI bleed, will consider GI procedures if positive. Otherwise, outpatient. Follow labs Discussed with Dr. Stubbs. Thank you for this patient referral, we will follow. The patient was seen and examined at bedside and all new and available data was reviewed in the patients chart. I agree with the above findings, impression and plan. (Patient seen earlier today. Signature stamp does not reflect patient encounter time.). - MD Subha PartidaSoutheastern Arizona Behavioral Health ServicesRaoul PATTERNMAKER Jan 28, 2019 09:54
--- NOTE | 2019-01-28 11:19 | Pulmonology Progress Note ---
Assessment/Plan Problems: (1) Incarcerated femoral hernia (2) History of hypertension (3) Alzheimer's dementia Assessment/Plan doing better no new complains Mi is discontinued advance diet as tolerated Dc home when OK with surgeon dvt prophylaxis Subjective ROS Limited/Unobtainable: No Constitutional: Reports: no symptoms HEENT: Repors: no symptoms Respiratory: Reports: no symptoms Allergies: Coded Allergies: No Known Allergies (Unverified , 01/27/19) Objective Last 24 Hour Vital Signs Date Time Temp Pulse Resp B/P (MAP) Pulse Ox O2 Delivery O2 Flow Rate FiO2 01/28/19 07:53 98.3 75 18 110/80 (90) 97 01/28/19 07:15 Room Air 01/28/19 05:07 99.3 75 16 107/56 (73) 93 01/28/19 00:00 97.9 69 18 108/48 (68) 93 01/27/19 21:00 Room Air 01/27/19 20:00 97.9 64 20 124/64 (84) 93 01/27/19 18:30 99.4 67 20 124/73 (90) 96 01/27/19 17:30 99.4 67 20 128/79 (95) 97 01/27/19 16:30 99.2 63 20 117/69 (85) 96 01/27/19 16:00 99.2 76 20 139/79 (99) 95 01/27/19 15:30 97.8 83 18 152/80 97 Room Air 01/27/19 15:30 99.3 81 18 148/88 (108) 96 01/27/19 15:15 81 16 140/84 95 Room Air 01/27/19 15:00 84 14 135/82 96 Room Air 01/27/19 14:30 91 16 149/86 97 Nasal Cannula 3 01/27/19 14:22 92 20 139/81 96 Nasal Cannula 3 01/27/19 14:20 89 14 140/84 97 Nasal Cannula 3 01/27/19 14:10 92 19 146/85 100 Simple Mask 6 01/27/19 14:01 86 20 98 01/27/19 14:00 91 20 136/77 100 Simple Mask 6 01/27/19 13:56 97.2 98 20 142/83 100 Simple Mask 6 01/27/19 12:10 Room Air Intake and Output 01/27/19 01/28/19 19:00 07:00 Intake Total 1580 ml 990 ml Output Total 100 ml 550 ml Balance 1480 ml 440 ml Intake Oral 480 ml 240 ml IV Total 1100 ml 750 ml Output Urine Total 100 ml 550 ml # Bowel Movements 5 General Appearance: WD/WN HEENT: normocephalic, atraumatic Respiratory/Chest: chest wall non-tender, lungs clear Cardiovascular: normal peripheral pulses, normal rate Abdomen: normal bowel sounds, no organomegaly Genitourinary: normal external genitalia Extremities: no clubbing Skin: no lesions Laboratory Tests 01/28/19 05:58: White Blood Count 9.5, Red Blood Count 3.81L, Hemoglobin 12.7L, Hematocrit 35.6L , Mean Corpuscular Volume 93, Mean Corpuscular Hemoglobin 33.4H, Mean Corpuscular Hemoglobin Concent 35.8, Red Cell Distribution Width 11.7, Platelet Count 220, Mean Platelet Volume 7.1, Neutrophils (%) (Auto) 78.9H, Lymphocytes ( %) (Auto) 9.1L, Monocytes (%) (Auto) 10.7H, Eosinophils (%) (Auto) 0.3, Basophils (%) (Auto) 1.1, Activated Partial Thromboplast Time 29, Sodium Level 135L, Potassium Level 3.3L, Chloride Level 100, Carbon Dioxide Level 28, Anion Gap 7, Blood Urea Nitrogen 17, Creatinine 1.3, Estimat Glomerular Filtration Rate , Glucose Level 113H, Calcium Level 8.3L, Total Bilirubin 0.6, Aspartate Amino Transf (AST/SGOT) 21, Alanine Aminotransferase (ALT/SGPT) 15, Alkaline Phosphatase 62, Total Protein 5.8L, Albumin 2.8L, Globulin 3.0, Albumin/ Globulin Ratio 0.9L, Amylase Level 68, Lipase 55L Current Medications Medications (Trade) Dose Ordered Sig/Demetrio Route PRN Reason Start Time Stop Time Status Last Admin Dose Admin Acetaminophen (Tylenol) 650 mg Q4H PRN ORAL T>100.5 01/27/19 11:15 02/26/19 11:14 Acetaminophen (Tylenol) 650 mg Q6H PRN ORAL Mild Pain (Pain Scale 1-3) 01/27/19 13:45 02/26/19 13:44 Acetaminophen/ Hydrocodone Bitart ([place] 10/325) 1 tab Q4H PRN ORAL Severe Pain (Pain Scale 7-10) 01/27/19 13:45 02/03/19 13:44 Acetaminophen/ Hydrocodone Bitart ([place] 5/325) 1 tab Q4H PRN ORAL Moderate Pain (Pain Scale 4-6) 01/27/19 13:45 02/03/19 13:44 Dextrose (Dextrose 50%) 25 ml Q30M PRN IV Hypoglycemia 01/27/19 11:15 02/26/19 11:14 Dextrose (Dextrose 50%) 50 ml Q30M PRN IV Hypoglycemia 01/27/19 11:15 02/26/19 11:14 Diphenhydramine HCl (Benadryl) 25 mg Q6H PRN ORAL Itching/Pruritis 01/27/19 11:15 02/26/19 11:14 Docusate Sodium (Colace) 100 mg THREE TIMES A DAY ORAL 01/28/19 13:00 02/27/19 12:59 Heparin Sodium (Porcine) (Heparin 5000 units/ml) 5,000 units EVERY 12 HOURS SUBQ 01/27/19 21:00 02/26/19 20:59 01/28/19 08:27 Hydromorphone HCl (Dilaudid) 0.5 mg Q3H PRN IVP Pain Score 1-3 01/27/19 13:45 02/03/19 13:44 Hydromorphone HCl (Dilaudid) 1 mg Q3H PRN IVP pain score 4-6 01/27/19 13:45 02/03/19 13:44 Lorazepam (Ativan 2mg/ml 1ml) 1 mg Q4H PRN IV agitation 01/27/19 11:15 02/03/19 11:14 Metoclopramide HCl (Reglan) 10 mg Q6H PRN IVP servere nauasea 01/27/19 11:15 02/26/19 11:14 Morphine Sulfate (Morphine Sulfate) 2 mg Q4H PRN IVP Severe Pain (Pain Scale 7-10) 01/27/19 11:15 02/03/19 11:14 Nitroglycerin (Ntg) 0.4 mg Q5M X 3 DOSES PRN SL Prn Chest Pain 01/27/19 11:15 02/26/19 11:14 Ondansetron HCl (Zofran) 4 mg Q6H PRN IVP Nausea & Vomiting 01/27/19 11:15 02/26/19 11:14 Polyethylene Glycol (Miralax) 17 gm BEDTIME ORAL 01/28/19 21:00 02/27/19 20:59 Polyethylene Glycol (Miralax) 17 gm HSPRN PRN ORAL Constipation 01/27/19 21:00 02/26/19 20:59 Potassium Chloride (K-Dur) 40 meq ONCE ORAL 01/28/19 10:46 01/28/19 12:00 01/28/19 11:01 Temazepam (Restoril) 15 mg HSPRN PRN ORAL Insomnia 01/27/19 21:00 02/03/19 20:59 01/27/19 22:27 Bashir Lawler MD Jan 28, 2019 11:19
[2019-01-28 11:46] VITALS: BP 107/72
[2019-01-28] MEDS ORDERED: Docusate 100mg cap ORAL SCH (13:00)
--- NOTE | 2019-01-28 15:17 | Surgery Progress Note ---
Surgery Progress Note Subjective Procedure Performed right inguinal hernia repair with mesh reduction of right incarcerated inguinal hernia Additional Comments doing well. minimal pain. no n/v/f/c. abd soft. tolerating diet +flatus +BM Objective Last 24 Hour Vital Signs Date Time Temp Pulse Resp B/P (MAP) Pulse Ox O2 Delivery O2 Flow Rate FiO2 01/28/19 11:46 98.0 76 17 107/72 (84) 97 01/28/19 07:53 98.3 75 18 110/80 (90) 97 01/28/19 07:15 Room Air 01/28/19 05:07 99.3 75 16 107/56 (73) 93 01/28/19 00:00 97.9 69 18 108/48 (68) 93 01/27/19 21:00 Room Air 01/27/19 20:00 97.9 64 20 124/64 (84) 93 01/27/19 18:30 99.4 67 20 124/73 (90) 96 01/27/19 17:30 99.4 67 20 128/79 (95) 97 01/27/19 16:30 99.2 63 20 117/69 (85) 96 01/27/19 16:00 99.2 76 20 139/79 (99) 95 01/27/19 15:30 97.8 83 18 152/80 97 Room Air 01/27/19 15:30 99.3 81 18 148/88 (108) 96 I&O Intake and Output 01/27/19 01/28/19 18:59 06:59 Intake Total 1580 ml 990 ml Output Total 100 ml 550 ml Balance 1480 ml 440 ml Intake Oral 480 ml 240 ml IV Total 1100 ml 750 ml Output Urine Total 100 ml 550 ml # Bowel Movements 5 Dressing: dry Wound: clean Drains: none Cardiovascular: RSR Respiratory: clear Abdomen: soft, non-tender, present bowel sounds Extremities: no edema, no tenderness, no cyanosis Laboratory Tests Test 01/28/19 05:58 White Blood Count 9.5 K/UL (4.8-10.8) Red Blood Count 3.81 M/UL (4.70-6.10) L Hemoglobin 12.7 G/DL (14.2-18.0) L Hematocrit 35.6 % (42.0-52.0) L Mean Corpuscular Volume 93 FL (80-99) Mean Corpuscular Hemoglobin 33.4 PG (27.0-31.0) H Mean Corpuscular Hemoglobin Concent 35.8 G/DL (32.0-36.0) Red Cell Distribution Width 11.7 % (11.6-14.8) Platelet Count 220 K/UL (150-450) Mean Platelet Volume 7.1 FL (6.5-10.1) Neutrophils (%) (Auto) 78.9 % (45.0-75.0) H Lymphocytes (%) (Auto) 9.1 % (20.0-45.0) L Monocytes (%) (Auto) 10.7 % (1.0-10.0) H Eosinophils (%) (Auto) 0.3 % (0.0-3.0) Basophils (%) (Auto) 1.1 % (0.0-2.0) Activated Partial Thromboplast Time 29 SEC (23-33) Sodium Level 135 MMOL/L (136-145) L Potassium Level 3.3 MMOL/L (3.5-5.1) L Chloride Level 100 MMOL/L (98-107) Carbon Dioxide Level 28 MMOL/L (21-32) Anion Gap 7 mmol/L (5-15) Blood Urea Nitrogen 17 mg/dL (7-18) Creatinine 1.3 MG/DL (0.55-1.30) Estimat Glomerular Filtration Rate mL/min (>60) Glucose Level 113 MG/DL (74-106) H Calcium Level 8.3 MG/DL (8.5-10.1) L Total Bilirubin 0.6 MG/DL (0.2-1.0) Aspartate Amino Transf (AST/SGOT) 21 U/L (15-37) Alanine Aminotransferase (ALT/SGPT) 15 U/L (12-78) Alkaline Phosphatase 62 U/L (46-116) Total Protein 5.8 G/DL (6.4-8.2) L Albumin 2.8 G/DL (3.4-5.0) L Globulin 3.0 g/dL Albumin/Globulin Ratio 0.9 (1.0-2.7) L Amylase Level 68 U/L (25-115) Lipase 55 U/L (73-393) L Plan Problems: (1) Incarcerated right inguinal hernia Assessment & Plan: 83 M with incarcerated right inguinal hernia. CT Findings: There is evidence of an incarcerated right inguinal hernia containing segment of the sigmoid colon. The proximal colon or afferent loop entering the hernia is moderately dilated which is suspicious for obstruction. There is no small bowel dilatation. The hernia itself is notable for inflammatory changes including some fluid in the hernia sac and soft tissue stranding. The hernia is not reducible according to Dr. Martínez on the markers department. Imaging findings are keeping with incarceration. There is no free air. There is no pneumatosis identified. There is a moderate amount of liquid stool within the colon. There is a fairly large left inguinal hernia containing fat. s/p right reduction and hernia repair with mesh doing well. improved had BM okay to d/c home f/u next week thank you Ladarius Herrera Jan 28, 2019 15:17
[2019-01-28] MEDS ORDERED: Miralax 17gm pkt ORAL SCH (21:00)
--- NOTE | 2019-01-29 06:57 | Discharge Summary ---
Discharge Summary Discharge Summary _ DATE OF ADMISSION: 01/27/2019 DATE OF DISCHARGE: 01/28/2019 DISCHARGED BY: Dr. Bashir Lawler CONSULTANTS: Dr. Ladarius Stubbs BRIEF HOSPITAL COURSE: Patient is an 83-year-old male with history of dementia, and hypertension, presented to ED for evaluation of constipation. Reportedly, he did not have a bowel movement for 4 days. Patient denied any abdominal pain. Denied any nausea or vomiting. He has a hernia on the right side, which came out the previous day. He had a hernia for several years and had previous discussions with doctors to have it corrected, but he declined. There was no aggravating or relieving factors. On evaluation at ED, vital signs were stable. Blood work did not show any leukocytosis. Hemoglobin and hematocrit were stable. Electrolytes were normal. He had a CT scan of the abdomen and pelvis that showed right inguinal hernia containing sigmoid with incarceration. He was then admitted for evaluation of an incarcerated right inguinal hernia. Surgical consultation was obtained. Patient had incarcerated right inguinal hernia that was not reduced reducible. CT findings showed evidence of incarcerated right inguinal hernia containing segment of the sigmoid colon. The proximal colon or afferent loop entering the hernia was moderately dilated, suspicious for obstruction. There was no small bowel dilatation. The hernia itself was notable for inflammatory changes including fluid in the hernial sac and soft tissue stranding. There was no free air. No pneumatosis identified. There was a moderate amount of liquid stool within the colon. There was a fairly large left inguinal hernia containing fat. He was placed on n.p.o. He was given IV hydration. He was prepped for OR. He underwent right inguinal hernia repair with mesh and reduction of incarcerated right inguinal hernia. He tolerated procedure well. He was extubated and was taken to postanesthesia care unit in stable condition. Both testicles were identified to be in anatomic position at the end of procedure. He was given postop care. He was given pain management. He was placed on SCDs for DVT prophylaxis. He was encouraged use of incentive spirometer. The following day, patient was ambulating well with physical therapy. Mi catheter discontinued. He had multiple bowel movements. Diet was advanced as tolerated. He was given potassium supplement. He was tolerating diet well. He was passing flatus and bowel movement. Abdomen was soft with minimal pain. Due to rapid unexpected improvement in patient condition, he was cleared for discharge home the following day. To follow-up with surgeon the following week. FINAL DIAGNOSES: Incarcerated right inguinal hernia Status post right inguinal hernia reduction and hernia repair with mesh Alzheimer's dementia History of hypertension DISPOSITION: Patient was discharged home. DISCHARGE MEDICATIONS: Refer to Discharge Medication List. DISCHARGE INSTRUCTIONS: Follow-up with surgeon in a week. I have been assigned to complete a discharge summary on this account, I was not involved with the patient's management. Delmy Barajas NP Jan 29, 2019 06:57
== END 2019-01-28 14:40 | disposition home or self-care (01) | DRG 352 ==
LOC: EMR 07:15 → 3E 09:21 → EDBEDREQ 09:59 → EMR 10:11 → 3E 22:09
PROC: 0YU50JZ Supplement Right Inguinal Region with Synthetic Substitute, Open Approach (ICD-10-PCS; principal; 2019-01-27 11:30)
DX: K40.30 Unilateral inguinal hernia, with obstruction, without gangrene, not specified as recurrent (principal); G30.9 Alzheimer's disease, unspecified; F02.80 Dementia in other diseases classified elsewhere, unspecified severity, without behavioral disturbance, psychotic disturbance, mood disturbance, and anxiety; I10 Essential (primary) hypertension; K59.00 Constipation, unspecified
CPT/HCPCS: 36415; 74177; 80053; 81003; 82150; 83690; 85025; 85610; 85730; 86850; 86900; 86901; 94003; 94150; 96374; 99285; J2710; J2765; J8499